=== PATIENT | male | born 1985 | race Caucasian/White ===

== ENCOUNTER 2017-01-22 02:34 | Emergency (ER) | payer MEDICAID ==
--- NOTE | 2017-01-22 02:39 | EDPHY ---
H & P Time Seen by Provider: 01/22/17 02:37 HPI/ROS: Chief Complaint: Seizure HPI: 31-year-old male had a witnessed tonic-clonic seizure while playing video games with friends. Patient states he has been drinking alcohol and using cannabis this morning. Patient states he did use some cocaine yesterday but none today. On EMS arrival the patient was put acting postictal confused. Patient does not have a history of the same. No recent head injuries. No nausea or vomiting. No chest pain shortness of breath.. Patient currently is without complaint ROS: 10 point Review of Systems is negative except as noted in the HPI. PMH: None Medications: None Allergies: No known drug allergies Social History: Positive for smoking, occasional alcohol, occasional cocaine Family History: non-contributory Physical Exam: Gen: Awake, Alert, No Distress HEENT: Nose: no rhinorrhea Eyes: PERRLA, EOMI Mouth: Moist mucosa Neck: Supple, no JVD Chest: nontender, lungs clear to auscultation Heart: S1, S2 normal, no murmur Abd: Soft, non-tender, no guarding Back: no CVA tenderness, no midline tenderness Ext: no edema, non-tender Skin: no rash Neuro: CN II-XII intact, Sensation grossly intact, Strength 5/5 in bilateral upper and lower extremities Constitutional: Initial Vital Signs Temperature (C) 36.7 C 01/22/17 02:35 Heart Rate 117 H 01/22/17 02:35 Respiratory Rate 16 01/22/17 02:35 Blood Pressure 126/73 H 01/22/17 02:35 O2 Sat (%) 95 01/22/17 02:35 O2 Delivery Mode Room Air Allergies/Adverse Reactions: No Known Allergies Allergy (Unverified 01/22/17 02:43) Home Medications: Medication Instructions Recorded NK [No Known Home Meds] 01/22/17 Medical Decision Making - Diagnostics Imaging Results: CT head is negative for acute intracranial process. Interpreted by Dr. Valencia. Imaging: Discussed imaging studies w/ call center assistant Radiologist ED Course/Re-evaluation: CT scan of the head is negative for acute process. Patient's blood work is consistent with a seizure. He is awake and alert without complaint at this time. He has sober friends who can take him home. Will discharge him with instructions to not drive. I suspect that this is substance related. I have counseled him to discuss continue use of the polysubstance is that he is using frequently. He also knows that he cannot drive until he is cleared by Neurology. - Data Points Laboratory Results: Laboratory Results 01/22/17 02:30 01/22/17 02:30 Sodium 145 mEq/L H mEq/L (134-144) Potassium 4.2 mEq/L mEq/L (3.5-5.2) Chloride 102 mEq/L mEq/L (97-110) Carbon Dioxide 14 mEq/l L mEq/l (22-31) Anion Gap 29 mEq/L H mEq/L (8-16) BUN 10 mg/dL mg/dL (7-23) Creatinine 1.0 mg/dL mg/dL (0.7-1.3) Estimated GFR > 60 Glucose 120 mg/dL H mg/dL (70-100) Calcium 10.6 mg/dL H mg/dL (8.5-10.4) Departure - Departure Disposition: Home, Routine, Self-Care Clinical Impression: Seizure Condition: Good Instructions: New-Onset Seizure in Adults (ED) Additional Instructions: You may not drive until your cleared by a neurologist. Follow up with primary care physician in in 3-4 days, they can refer you to Neurology. Please discontinue using alcohol and other drugs as I think these contributed to your seizure this morning. Return emergency department for return of seizures, headache, fevers or chills, or any other concerns. Referrals: Venita Ibarra MD [Medical Doctor] - As per Instructions Patient,NotPresent [Unknown] - As per Instructions Enoc Don MD [Medical Doctor] - As per Instructions
[2017-01-22 02:43] VITALS: RESP 16; TEMP 98.1
[2017-01-22 03:21] LABS: ANION GAP 29 mEq/L (8-16); CALCIUM 10.6 mg/dL (8.5-10.4); CARBON DIOXIDE 14 mEq/l (22-31); CHLORIDE 102 mEq/L (97-110); GLOMERULAR FILTRATION RATE > 60; GLUCOSE 120 mg/dL (70-100); POTASSIUM 4.2 mEq/L (3.5-5.2); SODIUM 145 mEq/L (134-144)
[2017-01-22 03:55] VITALS: BP 117/71; PULSE 96; O2SAT 94
== END 2017-01-22 03:53 | disposition home or self-care (01) ==
LOC: EDUNIT#
DX: R56.9 Unspecified convulsions (principal); F17.200 Nicotine dependence, unspecified, uncomplicated

== ENCOUNTER → 2017-02-08 | Outpatient (CLI) | payer MEDICAID ==
--- NOTE | 2017-02-15 17:25 | CPEEG ---
[f rep st] ELECTROENCEPHALOGRAM 4-HOUR VIDEO EEG DATE OF STUDY: 02/08/2017 DATE OF INTERPRETATION: 02/15/2017 INTERPRETATION: This 4-hour video EEG recording is normal. There were no potentially epileptogenic abnormalities present through the awake or sleep recordings. During the video EEG monitoring sessi on, the patient did not have any clinical events. REPORT: This 4-hour video EEG contains 10 Hz alpha activity to the posterior head regions. There w as no abnormal activation at rest, during photic stimulation or hyperventilation. The patient becam e drowsy and fell into sustained sleep during the study. There was no abnormal activation during dr owsiness, sleep, or during times of arousal. There were no clinical events recorded during the vide o EEG monitoring session. /[id number]/[id number]
== END ==
LOC: FCPNEURO 08:56
PROVIDERS: ATTEND Psychiatry & Neurology Neurology
DX: R56.9 Unspecified convulsions (principal)

== ENCOUNTER → 2017-04-12 | Outpatient (CLI) | payer MEDICAID | LOC: FIMAGING 13:00 | PROVIDERS: ATTEND Psychiatry & Neurology Neurology | DX: R56.9 Unspecified convulsions (principal) ==